=== PATIENT | male | born 1945 | race Caucasian/White ===

== ENCOUNTER → 2024-03-03 11:29 | Outpatient (REF) | payer MEDICARE, OTHER, SELFPAY | LOC: HWRAD 11:29 | PROVIDERS: ATTENDING PHYSICIAN Physician Assistant | DX: Z71.89 Other specified counseling (principal); E04.1 Nontoxic single thyroid nodule | CPT/HCPCS: 71250 ==

== ENCOUNTER → 2024-04-20 12:00 | Outpatient (REF) | payer MEDICARE, OTHER, SELFPAY | LOC: DHSLP 12:00 | PROVIDERS: ATTENDING PHYSICIAN Internal Medicine; FAMILY PHYSICIAN Family Medicine | DX: G47.33 Obstructive sleep apnea (adult) (pediatric) (principal) | CPT/HCPCS: 95800 ==

== ENCOUNTER → 2025-04-12 06:53 | Outpatient (REF) | payer OTHER, SELFPAY | LOC: RAD 06:53 | PROVIDERS: ATTENDING PHYSICIAN Specialist; FAMILY PHYSICIAN Physician Assistant | DX: R31.0 Gross hematuria (principal) | CPT/HCPCS: 74178; Q9967 ==

== ENCOUNTER 2025-04-25 06:12 | Day surgery (SDC) | payer OTHER, SELFPAY ==
[2025-04-20 09:12] LABS: Hematocrit 41.7 % (39.0-52.0); Hemoglobin 14.1 g/dL (13.0-18.0); Mean Corp Hgb Conc. 33.8 g/dL (33.0-37.0); Mean Corpuscular Volume 85.3 fL (80.0-94.0); Platelet Count 137 10^3/uL (130-400); Red Cell Dist. Width 12.7 % (11.5-14.5)
[2025-04-20 09:56] LABS: Blood Urea Nitrogen 22 mg/dl (9-20); Calcium 9.0 mg/dl (8.4-10.2); Carbon Dioxide 25 mmol/L (22-30); Chloride 104 mmol/L (98-107); Glucose 131 mg/dl (70-99); Potassium 4.4 mmol/L (3.5-5.1); Sodium 138 mmol/L (135-145); eGFR 55.88
[2025-04-20 13:54] VITALS: BMI 41.1
[2025-04-25] VITALS (14 sets, daily range): BP systolic 117–165; BP diastolic 73–97; BMI 41.1
[2025-04-25] MEDS: CYSVIEW KIT 100 MG INTRAVES (08:25)
[2025-04-25] MEDS: NORMOSOL-R/PLASMALYTE-A 1000 IV (08:34)
[2025-04-25] MEDS: SYRINGE NON-PUMP 50 MG IRRIG ×2 (11:16→11:17)
[2025-04-25] MEDS: SYRINGE NON-PUMP 50 ML IRRIG ×2 (11:16→11:17)
[2025-04-25] MEDS: DILAUDID 0.25 MG IV ×2 (11:18→11:28)
--- NOTE | 2025-04-25 12:50 | PTCARENOTE ---
1235 Post mckenna removal patient had minimal bleeding from urethra which clotted. Urethral clot removed and Dr Hammer notified. VSS and patient without C/O. Patient transferred to [facility], RN updated and will F/U with Dr Hammer.
[2025-04-25] MEDS: TYLENOL 650 MG PO (13:45)
--- NOTE | 2025-04-26 01:44 | W.IMMPOSTOP ---
Surgical Immed Post Op Note
-
Primary Surgeon: Ben
Assisting Surgeon: Harman
Pre-op Diagnosis: Bladder Cancer; Post-op Hematuria with Clot Urinary Retention
Post-op Diagnosis: same
Procedure Performed: cysto, clot evacuation, fulguration of bleeding
Anesthesia Type: gen
Specimen / Cultures: none
Estimated Blood Loss: 250 cc of clot; 50 ml of active bleeding
Complications: none
Operative Findings: clotted blood and friable resection sites within urinary bladder; bladder intact
OR findings, pt status and anticipated post-op plan d/w in family waiting
Tubes: 24 Fr 3-way Bella with CBI
== END 2025-04-25 14:48 | disposition home or self-care (01) ==
LOC: SDS 06:12
PROVIDERS: ATTENDING PHYSICIAN Specialist; FAMILY PHYSICIAN Physician Assistant
DX: C67.9 Malignant neoplasm of bladder, unspecified (principal)
CPT/HCPCS: 36415; 80048; 85027; 88307; 93005; A9589; J9201

== ENCOUNTER 2025-04-25 23:36 | Inpatient (IN) | payer OTHER, SELFPAY ==
[2025-04-25 21:22] VITALS: BP 92/66
--- NOTE | 2025-04-25 21:55 | ED.GENMED ---
History of Present Illness
<Noemi Perdomo, SEISMOMETER OPERATOR - Last Filed: 04/26/25 00:08>
General
Chief Complaint: Urinary Symptoms
Source: patient
Exam Limitations: none
Time Seen by Provider: 04/25/25 21:30
Nursing documentation reviewed up to this point in time: agreed with
History of Present Illness
History of Present Illness:
79-year-old male with history of HTN, HLD, CHF, GERD, sleep apnea with CPAP presents after bladder surgery earlier today by Dr. 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 The surgical procedure included a chemical
wash of the bladder. A catheter was placed during surgery but was removed before discharge. However, the patient was unable to urinate due to blood clots, and a larger catheter was subsequently inserted. The patient reports difficulty with urine
flow despite successfully emptying the bag once after arriving home. He was experiencing significant discomfort, stating, 'The only relief I get is when I stand up.' The patient returned to the Emergency Department due to persistent clots
obstructing the catheter.
Past History
<Noemi Perdomo, SEISMOMETER OPERATOR - Last Filed: 04/26/25 00:08>
Past History
ED Past Medical History: GERD, HTN, Hypercholesterolemia and Other (Sleep apnea, PNA, Gi bleeding)
ED Past Surgical History: None, Orthopedic (Knee replacement) and Other (Hernia)
Social History
Tobacco: Former smoker
Alcohol: Occasional
Personal:
Living: with family
Phy Exam
<Noemi Perdomo, SEISMOMETER OPERATOR - Last Filed: 04/26/25 00:08>
Physical Exam
Physical Exam:
GENERAL: No acute distress. A&Ox3.
CONSTITUTIONAL: Afebrile.
EYES: clear, conjunctivae normal
ENMT: moist mucus membranes, Pharynx nl
RESPIRATORY: Regular respirations, nonlabored, lungs clear.
CARDIOVASCULAR: Regular rate and rhythm, no murmurs, no rubs.
GI: Soft, nontender, normal BS
: Bella catheter intact, draining jordin red blood with clots
MUSCULOSKELETAL: Moves with ease. Well perfused.
SKIN: Warm, dry, pink
PSYCH: Normal mood and affect. Well kept, interactive and appropriate
NEUROLOGIC: Awake, alert and oriented. No focal neurological deficits
Course
<Noemi Perdomo NP - Last Filed: 04/26/25 00:08>
Orders/Labs/Results
Orders:
Orders
04/25/25 22:02
0.9% Sodium Chloride 1000 ml [Nss] 1,000 ml IV BOLUS
04/25/25 22:12
UROLOGY CONSULT Urgent
Consulting Provider: Jordin Contreras Jr.
Was physician already notified: Yes
Comment: bloody drainage Bella catheter
04/25/25 22:16
Type+Screen Urgent
Complete Blood Count/With Diff Urgent
Comprehensive Metabolic Panel Urgent
04/25/25 22:32
CBI- Treatment PRN
Solution: ns
Irrigate to Clear?: Yes
04/25/25 22:48
diazePAM [Valium Injection] 5 mg IV NOW STA
04/25/25 22:50
diazePAM [Valium Injection] 10 mg .ROUTE .STK-MED ONE
04/25/25 23:05
HYDROmorphone [Dilaudid] 0.5 mg IV NOW STA
04/25/25 23:33
Admit/Transfer Patient As Directed
Co-Sign Provider:
Level of Care: Inpatient admission
Assign to:: IMU- Intermediate Care
Physician / Group: Jennifer Rolon
Diagnosis: hematuria
Reason for Hospitalization: hematuria
Expected length of stay greater than two midnights?: Yes
ELOS- Estimated Length of Stay in days: 3
I certify the patient meets the requirements for IP care: Yes
PRN Pain Medication Management As Directed
May give lesser potent ordered pain med per pt: Yes
preference::
Protocol:: Medication orders for pain may be administered in a
manner that supports deferring to patient preference
when the pt is:
- Requesting an ordered lesser potent pain medication.
Least to most potent pain medications are defined
as: acetaminophen < NSAID < tramadol < opioids
(morphine, oxycodone, hydromorphone).
- Requesting a lesser dose of the same medication IF
ORDERED.
- Requesting a less intrusive route of administration
if both routes are prescribed by the provider (PO <
IV).
04/25/25 23:35
Code Status As Directed
Resuscitation Status: Full Code
04/25/25 23:42
Dexamethasone Sod Phosphate [Decadron] 20 mg .ROUTE .STK-MED ONE
Lidocaine HCl/Pf [Xylocaine-Mpf 1% Vial] 50 mg .ROUTE .STK-MED ONE
Ondansetron Injectable [Zofran] 4 mg .ROUTE .STK-MED ONE
Propofol [Diprivan] 20 ml .ROUTE .STK-MED
Rocuronium [place] [Rocuronium] 50 mg .ROUTE .STK-MED ONE
04/25/25 23:43
Fentanyl Citrate/Pf [Sublimaze] 100 mcg .ROUTE .STK-MED ONE
04/25/25 23:50
Carboxymethylcellulose [Refresh Celluvisc Gel] 6 drops .ROUTE .STK-MED ONE
Abnormal Lab Results
04/25/25
22:16
WBC 11.2 H 10^3/uL
(4.8-10.8)
RBC 4.68 L 10^6/uL
(4.70-6.10)
MPV 11.9 H fL
(7.4-10.4)
Abs Immat Gran (auto) 0.1 H 10^3/uL
(0-0.05)
Absolute Neuts (auto) 10.5 H 10^3/uL
(1.4-6.5)
Absolute Lymphs (auto) 0.3 L 10^3/uL
(1.2-3.4)
Immature Gran % 0.6 H %
(0-0.5)
Neutrophils % 94.1 H %
(42.2-75.2)
Lymphocytes % 2.3 L %
(20.5-51.1)
Carbon Dioxide 21 L mmol/L
(22-30)
Glucose 235 H mg/dl
(70-99)
04/25/25 22:16
04/25/25 22:16
Vital Signs
Initial and Last Documented VS:
Initial Vital Signs
Temp Pulse Resp BP Pulse Ox
98.2 F 112 20 92/66 95
04/25/25 21:22 04/25/25 21:22 04/25/25 21:22 04/25/25 21:22 04/25/25 21:22
Last Documented Vital Signs
Temp Pulse Resp BP Pulse Ox
98.2 F 108 16 159/107 95
04/25/25 21:22 04/25/25 22:00 04/25/25 22:00 04/25/25 23:35 04/25/25 23:45
<Marlon Barrow, DO - Last Filed: 04/25/25 22:19>
Orders/Labs/Results
Orders:
Orders
04/25/25 22:02
0.9% Sodium Chloride 1000 ml [Nss] 1,000 ml IV BOLUS
04/25/25 22:12
UROLOGY CONSULT Urgent
Consulting Provider: Jordin Contreras Jr.
Was physician already notified: Yes
Comment: bloody drainage Bella catheter
04/25/25 22:16
Type+Screen Urgent
Complete Blood Count/With Diff Urgent
Comprehensive Metabolic Panel Urgent
04/25/25 22:32
CBI- Treatment PRN
Solution: ns
Irrigate to Clear?: Yes
04/25/25 22:48
diazePAM [Valium Injection] 5 mg IV NOW STA
04/25/25 22:50
diazePAM [Valium Injection] 10 mg .ROUTE .STK-MED ONE
04/25/25 23:05
HYDROmorphone [Dilaudid] 0.5 mg IV NOW STA
04/25/25 23:33
Admit/Transfer Patient As Directed
Co-Sign Provider:
Level of Care: Inpatient admission
Assign to:: IMU- Intermediate Care
Physician / Group: Jennifer Rolon
Diagnosis: hematuria
Reason for Hospitalization: hematuria
Expected length of stay greater than two midnights?: Yes
ELOS- Estimated Length of Stay in days: 3
I certify the patient meets the requirements for IP care: Yes
PRN Pain Medication Management As Directed
May give lesser potent ordered pain med per pt: Yes
preference::
Protocol:: Medication orders for pain may be administered in a
manner that supports deferring to patient preference
when the pt is:
- Requesting an ordered lesser potent pain medication.
Least to most potent pain medications are defined
as: acetaminophen < NSAID < tramadol < opioids
(morphine, oxycodone, hydromorphone).
- Requesting a lesser dose of the same medication IF
ORDERED.
- Requesting a less intrusive route of administration
if both routes are prescribed by the provider (PO <
IV).
04/25/25 23:35
Code Status As Directed
Resuscitation Status: Full Code
04/25/25 23:42
Dexamethasone Sod Phosphate [Decadron] 20 mg .ROUTE .STK-MED ONE
Lidocaine HCl/Pf [Xylocaine-Mpf 1% Vial] 50 mg .ROUTE .STK-MED ONE
Ondansetron Injectable [Zofran] 4 mg .ROUTE .STK-MED ONE
Propofol [Diprivan] 20 ml .ROUTE .STK-MED
Rocuronium [place] [Rocuronium] 50 mg .ROUTE .STK-MED ONE
04/25/25 23:43
Fentanyl Citrate/Pf [Sublimaze] 100 mcg .ROUTE .STK-MED ONE
04/25/25 23:50
Carboxymethylcellulose [Refresh Celluvisc Gel] 6 drops .ROUTE .STK-MED ONE
Abnormal Lab Results
04/25/25
22:16
WBC 11.2 H 10^3/uL
(4.8-10.8)
RBC 4.68 L 10^6/uL
(4.70-6.10)
MPV 11.9 H fL
(7.4-10.4)
Abs Immat Gran (auto) 0.1 H 10^3/uL
(0-0.05)
Absolute Neuts (auto) 10.5 H 10^3/uL
(1.4-6.5)
Absolute Lymphs (auto) 0.3 L 10^3/uL
(1.2-3.4)
Immature Gran % 0.6 H %
(0-0.5)
Neutrophils % 94.1 H %
(42.2-75.2)
Lymphocytes % 2.3 L %
(20.5-51.1)
Carbon Dioxide 21 L mmol/L
(22-30)
Glucose 235 H mg/dl
(70-99)
04/25/25 22:16
04/25/25 22:16
Vital Signs
Initial and Last Documented VS:
Initial Vital Signs
Temp Pulse Resp BP Pulse Ox
98.2 F 112 20 92/66 95
04/25/25 21:22 04/25/25 21:22 04/25/25 21:22 04/25/25 21:22 04/25/25 21:22
Last Documented Vital Signs
Temp Pulse Resp BP Pulse Ox
98.2 F 108 16 159/107 95
04/25/25 21:22 04/25/25 22:00 04/25/25 22:00 04/25/25 23:35 04/25/25 23:45
<Noemi Perdomo, SEISMOMETER OPERATOR - Last Filed: 04/26/25 00:08>
MDM/Problems Addressed
MDM/Problems Addressed:
79-year-old male with history of HTN, HLD, CHF, GERD, sleep apnea with CPAP presents after bladder surgery earlier today by Dr. 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 The surgical procedure included a chemical
wash of the bladder. A catheter was placed during surgery but was removed before discharge. However, the patient was unable to urinate due to blood clots, and a larger catheter was subsequently inserted. The patient reports difficulty with urine
flow despite successfully emptying the bag once after arriving home. He was experiencing significant discomfort, stating, 'The only relief I get is when I stand up.' The patient returned to the Emergency Department due to persistent clots
obstructing the catheter.
PROCEDURES PERFORMED:
1. Transurethral resection of bladder tumors.
2. Intravesical chemotherapy installation (gemcitabine).
3. Cystoscopy: White and blue lights.
Jordin blood in Bella bag and urine retention. Irrigated numerous times with clots and jordin blood, CBI started.
10:00 PM:
BP soft 92/66, heart rate 112, continues with jordin red blood drainage with CBI
Consulted urology Dr. Contreras
Case discussed with Dr. Barrow who evaluated patient
10:20 p.m.
CBC: No clinically significant abnormality
CMP: Glucose 235 otherwise normal (stress reaction vs. diabetes, Hgb A1C ordered)
BP improved, CBI starting to drain more clear, cranberry colored fluid
Hospitalist notified of admission.
Dr. Contreras in
<Noemi Perdomo SEISMOMETER OPERATOR - Last Filed: 04/26/25 00:08>
*Pulse Oximetry
SaO2: 95
Oxygen Mode of Delivery: Room air
Patient hypoxic: not evaluated
*Critical Care Note
Total Time (30-74mins, 75-104mins- exclusive of procedures): Not Applicable
ED Attending Note
<Noemi Perdomo SEISMOMETER OPERATOR - Last Filed: 04/26/25 00:08>
-
Portions of this chart may have been created with voice recognition software.� Occasional wrong word or��sound alike� substitutions may have occurred due to the inherent limitations of voice recognition software.
<Marlon Barrow DO - Last Filed: 04/25/25 22:19>
ED Attending Note
Patient seen and examined by attending physician: Yes
ED Attending Note:
I reviewed and agree with history and treatment plan by LUIS FELIPE Bailey. My exam revealed 79-year-old female in no acute distress mild tachycardia but normotensive. Initial gross hematuria clearing a little bit with CBI. Urology made aware. Will
admit for further monitoring. Type and screen performed.
Discharge Plan
Departure
Patient Disposition: Admit
Date of Disposition: 04/25/25
Time of Disposition: 22:19
Admit to: Med/Surg
Presentation/result/management discussed w/ accepting MD/DO: Hospitalist
Condition: Fair
Discharge Problem:
Jordin hematuria
Prescriptions:
No Action
cyanocobalamin (vitamin B-12) 1,000 MCG tablet
1,000 mcg PO DAILY
cholecalciferol (vitamin D3) 1,000 UNITS tablet
2,000 units PO DAILY
furosemide 40 MG tablet
40 mg PO BID AT 0800,1600 Qty: 60 2RF
diltiazem HCl 180 MG capsule,extended release 24hr
180 mg PO DAILY Qty: 30 0RF
melatonin 5 mg Tablet
10 mg PO HS PRN (Reason: sleep)
pravastatin 40 MG tablet
40 mg PO QPM
acetaminophen [Tylenol Extra Strength] 500 MG tablet
1,000 mg PO QID PRN (Reason: pain)
multivitamin Tablet
1 tab PO DAILY
losartan 50 mg Tablet
50 mg PO DAILY
Uro-MP 118-10-40.8-36 mg capsule
1 tab PO QID Qty: 40 5RF
tramadol 50 mg tablet
50 mg PO TID PRN (Reason: severe pain) Qty: 15 0RF
Referrals:
NONE,* [Family Provider, Internal Medicine]
Interventions
Interventions:
*Risk Screen - Suicide Last Done: 04/25/25 21:22
*General Assessment Last Done: 04/25/25 21:55
*Neglect/Abuse Screening Last Done: 04/25/25 21:22
*ED- Fall Risk Assessment Last Done: 04/25/25 21:55
*ED COVID-19 Vaccine History Last Done: 04/25/25 21:55
ED-Male Genitourinary Assessment Last Done: 04/25/25 23:25
Discharge Date and Time
Print Language: [place]CI[place]
[2025-04-25 22:00] VITALS: BP 153/97
[2025-04-25] MEDS: NSS 1000 IV (22:17)
--- NOTE | 2025-04-25 22:30 | HPS.HSE ---
Family Physician
-
Family Physician: * NONE
Chief Complaint
-
decreased urine flow in Mckenna and discomfort
History of Present Illness
Patient is a 79-year-old male with past medical history significant for HFpEF, hypertension and SVT who presented to [facility] ED for evaluation of decreased urine flow in Mckenna and discomfort. Patient is s/p TURBT and intravesical chemotherapy
installation (gemcitabine) with Dr. Hammer earlier today. He reported that postop he had clots and difficulty urinating so a Mckenna was placed and since he got home the urine flow has slowed, blood present with clots and abdominal discomfort. He
presented to ED for discomfort and clots obstructing the catheter. New mckenna placed in ED and clotted off, Urology unable to irrigate, taking patient to OR for clot evacuation and fulguration.
Medical History
Past Medical History
Past Medical History: Reports Other
Additional Past Medical History:
HFpEF
hypertension
anemia
MARI
SVT
Past Surgical History: Reports Other
Additional Past Surgical History:
Left knee replacement 2012
Right TKR (DOS 02.25.2023)
Hernia 1997
Teeth implants 06/2024
TURBT 04/25/2025
Social History
Tobacco: Former Smoker
Alcohol: Occasional (multiple times a week )
Drug: None
Personal:
Living: With Family
Family History
Family History: Not pertinent
Allergies / Home Medications
Allergies reflects when Allergies were last updated in [employer].
Home Medications with original date entered in [employer]
Allergy/Medication List:
Allergies
Allergy/AdvReac Type Severity Reaction Status Date / Time
lisinopril Allergy 'coughing' Verified 04/25/25 23:06
Home Medications
cholecalciferol (vitamin D3) 25 mcg (1,000 unit) tablet 2,000 units PO DAILY Supplement 10/30/19
cyanocobalamin (vitamin B-12) 1,000 mcg tablet 1,000 mcg PO DAILY Supplement 10/30/19
furosemide 40 mg tablet 40 mg PO BID AT 0800,1600 #60 tabs 11/11/19
diltiazem HCl 180 mg capsule,extended release 24 hr 180 mg PO DAILY ##30 11/21/19
melatonin 5 mg tablet 10 mg PO HS PRN sleep 02/04/23
acetaminophen 500 mg tablet (Tylenol Extra Strength) 1,000 mg PO QID PRN pain 04/18/25
losartan 50 mg tablet 50 mg PO DAILY 04/18/25
multivitamin 1 tab PO DAILY 04/18/25
pravastatin 40 mg tablet 40 mg PO QPM 04/18/25
methenam 118 mg-m.blue 10 mg-s.phos 40.8 mg-p.salic 36 mg-hyos capsule (Uro-MP) 1 tab PO QID bladder irritation #40 caps 04/25/25
tramadol 50 mg tablet 50 mg PO TID PRN severe pain #15 tabs 04/25/25
Review of Systems
-
History Source: Patient
Constitutional: Reports No Symptoms
EENT: Reports No Symptoms
Respiratory: Reports No Symptoms
Cardiac: Reports No Symptoms
Abdomen/GI: Reports Abdominal Pain
: Reports Difficulty Voiding and Mckenna (clotted off x2 unable to irrigate )
Musculoskeletal: Reports No Symptoms
Skin: Reports No Symptoms
Neurological: Reports No Symptoms
Endocrine: Reports No Symptoms
Hematologic/Lymphatic: Reports No Symptoms
Psych: Reports No Symptoms
Physical Exam
Vital Signs
Vital Signs
Temp Pulse Resp BP Pulse Ox
98.2 F 108 16 153/97 98
04/25/25 21:22 04/25/25 22:00 04/25/25 22:00 04/25/25 22:00 04/25/25 22:00
Physical Exam
General: Well Developed, Well Nourished, No Apparent Distress, Appears in Distress, Pain and Morbidly Obese
HEENT: NormoCephalic, Moist mucous membranes and Atraumatic
Respiratory: Clear and Non Labored Respirations
Cardiac: S1/S2 and Regular Rhythm; No Murmur, Rub or Gallop
GI: Soft, Non Tender, Non Distended and Normal Bowel Sounds; No Organomegaly
Rectal: Deferred by Provider
Genito-urinary: Bloody Urine and Continuous Bladder Irrigation (clotted off and unable to irrigate )
Musculoskeletal: No Clubbing, No Cyanosis and No Edema
Skin: No Rash
Neuro: Awake, AO x 3 and Nonfocal/grossly intact
Hematologic/Lymphatic: No Lymphadenopathy
Psych: Intact Judgment/Insight
Data Reviewed
-
Lab Data: Labs Reviewed by me
Impression/Plan
-
IMPRESSION/PLAN:
#hematuria
s/p TURBT-gemcyto with Dr. Hammer earlier today
s/p Mckenna exchange in ED, attempted irrigation of clots, unsuccessful, patient with significant discomfort
- Admit to IMU
- Consult Urology
- NPO, patient going to OR
- trend H/H
- blood consent obtained and scanned to chart
#HFpEF
- daily weights
- I &Os
- continue furosemide
#hypertension
- continue losartan
#hyperlipidemia
- continue pravastatin
#MARI
- CPAP at HS
#SVT
- continue diltiazem
Code status: full code
DVT prophylaxis: SCDs
--- NOTE | 2025-04-25 22:33 | W.PN.UPDATE ---
Update Note
Progress Note Update
This is an addendum to H&P written by NET WPF DEVELOPER Neda Quevedo
I saw and examined the patient.
The NET WPF DEVELOPER's note was reviewed and I agree with the note.
Comment:
Mr. Brian Paz is a 79 yo man with hx HTN, HLD, HF, GERD, MARI, bladder mass status post transurethral resection bladder tumor, intravesical chemotherapy presents to the ER with suprapubic discomfort and difficulty with urine flow in catheter
secondary to blood clots.
Triage VS: T 98.2, P 112, RR 20, BP 92/66, Spo2 95%
On exam patient is in apparent distress, discomfort, abdomen soft, suprapubic tenderness, + mckenna with hematuria
LABS: WBC 11.2, Hg 13.7, PLT 138, Na 136,j K+ 4.7, Cl 105, CO2 21, Cr 1.3, Glucose 235, T. Bili 0.6, AST 20, ALT 23, Alk PHos 70
Hematuria
status post Transurethral resection of bladder tumor
-s/p mckenna exchange, attempt at irrigation in ER but given difficulty and patient discomfort plan is for OR today
-seen by Dr. Contreras in the ER
-admit to IMU post-op
-trend Hg
-blood consent
Essential HTN
GERD
HFpEF
*awaiting med rec
Remainder of plan per NET WPF DEVELOPER note
76 minutes spent on patient care
--- NOTE | 2025-04-25 22:35 | EDRN ---
Dr. Contreras at bedside, Ben emptied CBI bag without measuring, unable to accurately measure I/O's.
[2025-04-25 22:42] LABS: ALT (SGPT) 23 U/L (0-50); AST (SGOT) 20 U/L (17-59); Albumin 4.3 g/dl (3.5-5.0); Alkaline Phosphatase 70 U/L (38-126); Blood Urea Nitrogen 20 mg/dl (9-20); Calcium 9.1 mg/dl (8.4-10.2); Carbon Dioxide 21 mmol/L (22-30); Chloride 105 mmol/L (98-107); Glucose 235 mg/dl (70-99); Potassium 4.7 mmol/L (3.5-5.1); Sodium 136 mmol/L (135-145); Total Protein 6.7 g/dl (6.3-8.2); eGFR 55.88
[2025-04-25 22:52] LABS: Hematocrit 39.6 % (39.0-52.0); Hemoglobin 13.7 g/dL (13.0-18.0); Mean Corp Hgb Conc. 34.6 g/dL (33.0-37.0); Mean Corpuscular Volume 84.6 fL (80.0-94.0); Nucleated Red Blood Cells % 0 % (-); Platelet Count 138 10^3/uL (130-400); Red Cell Dist. Width 12.7 % (11.5-14.5)
[2025-04-25] MEDS: VALIUM INJECTION 5 MG IV (22:53)
[2025-04-25 23:00] VITALS: BP 194/109
[2025-04-25 23:02] VITALS: BP 159/89
--- NOTE | 2025-04-25 23:14 | W.PN.UPDATE ---
Update Note
Progress Note Update
pt s/p TURBT-gemcyto
sent home with mckenna
developed clot retention
mckenna placed in ER and CBI started- but clotted off
replaced mckenna- but can not irrigate and pt in sig discomfort
labs stable
lower abd benign
plan to OR for cysto and clot evac and fulguration
[2025-04-25] MEDS: DILAUDID 0.5 MG IV (23:18)
[2025-04-25 23:26] VITALS: BMI 43.7
[2025-04-25 23:35] VITALS: BP 159/107
[2025-04-26] VITALS (17 sets, daily range): BP systolic 123–159; BP diastolic 67–107; PULSE 72–78; BMI 43.7; BMI 44.8; BMI 44.7
--- NOTE | 2025-04-26 03:17 | PTCARENOTE ---
Received patient from PACU this am. Patient aao x3, friendly affect, able to make needs known, denies pain. NSR on the monitor with occasional PVCs. Lungs diminished throughout, on 3L o2 n/c pox 95%. RT at bedside currently applying CPAP per patient
request. BS hypoactive x4, abdomen round, obese. Patient denies discomfort, constipation. CBI currently running at rate set in OR. [address] way mckenna catheter to traction per md order until 0600. at bedside, call salomon within reach. Will continue to
monitor patient closely.
[2025-04-26 05:35] LABS: Hematocrit 36.7 % (39.0-52.0); Hemoglobin 12.5 g/dL (13.0-18.0); Mean Corp Hgb Conc. 34.1 g/dL (33.0-37.0); Mean Corpuscular Volume 85.3 fL (80.0-94.0); Platelet Count 118 10^3/uL (130-400); Red Cell Dist. Width 12.8 % (11.5-14.5)
[2025-04-26 06:00] LABS: Blood Urea Nitrogen 19 mg/dl (9-20); Calcium 8.0 mg/dl (8.4-10.2); Carbon Dioxide 23 mmol/L (22-30); Chloride 106 mmol/L (98-107); Estimated Creatinine Clearance 71 ml/min; Glucose 176 mg/dl (70-99); Potassium 4.8 mmol/L (3.5-5.1); Sodium 135 mmol/L (135-145); eGFR > 60.00
--- NOTE | 2025-04-26 06:23 | PTCARENOTE ---
CBI running, mckenna draining clear yellow urine. Patient continues to deny pain. Will continue to monitor closely.
--- NOTE | 2025-04-26 07:36 | W.PN.HOSP.TC ---
Today's Communication/Plan
-
see A/P
Assessment / Plan
Assessment / Plan
HPI: 79 yo man with PMH HTN, HLD, HF, GERD, MARI, bladder mass status post transurethral resection bladder tumor, intravesical chemotherapy; presented to the ER with suprapubic discomfort and difficulty with urine flow in catheter secondary to blood
clots.
A/P:
# Hematuria
# status post Transurethral resection of bladder tumor
s/p mckenna exchange, attempt at irrigation in ER but given difficulty and patient discomfort plan is for OR
s/p OR 04/25 for cystoscopy, clot evacuation, fulguration of bleeding by Uro
Admit to IMU post-op
trend Hg, blood consented
# Essential HTN
continue losartan with hold parameter
# GERD
# HFpEF
Cont [employer] ANALYST lasix with hold parameter
# hyperlipidemia
continue pravastatin
# MARI
CPAP at HS
# SVT
Continue diltiazem
Code status: full code
DVT prophylaxis: SCDs
DW RN
DW at bedside
Anticipated Discharge: 24 - 48 hours
Subjective/Interval History
-
Date of Service: April 26, 2025
Objective Data
-
Labs:
Laboratory Results
04/25/25 04/26/25 04/26/25
22:16 01:46 05:22
WBC 11.2 H 12.1 H
Hgb 13.7 Cancelled 12.5 L
Hct 39.6 Cancelled 36.7 L
Plt Count 138 118 L
Sodium 136 135
Potassium 4.7 4.8
Chloride 105 106
Carbon Dioxide 21 L 23
BUN 20 19
Creatinine 1.3 1.2
Glucose 235 H 176 H
Calcium 9.1 8.0 L
Total Bilirubin 0.6
AST 20
ALT 23
Alkaline Phosphatase 70
Vital Signs:
Vital Signs
Temp Pulse Resp BP Pulse Ox
36.9 C 69 14 134/67 97
04/26/25 03:50 04/26/25 06:15 04/26/25 06:15 04/26/25 06:00 04/26/25 06:15
I&O
04/25/25 04/26/25 04/27/25
06:59 06:59 06:59
Intake Total 240 / 240
Output Total 2800 / 2800
Balance -2560 / -2560
Review of Systems
-
History Source: Patient
All other systems: Reviewed and negative
Physical Exam
-
General: Well Developed, Well Nourished, No Apparent Distress, Comfortable and Conversant; Negative Respiratory Distress
HEENT: Normocephalic, Atraumatic, Nose Appears Normal, Ears Appear Normal and Oxygen (3L NC)
Respiratory: Clear to Auscultation and Non Labored Respirations; Negative Accessory Resp Muscle Use
Cardiac: Regular Rhythm and S1/S2
GI: Soft, Nontender, Nondistended and Normal Bowel Sounds
Genito-urinary: Continuous Bladder Irrigation
Skin: Warm and Dry
Neuro: Awake, Alert, Oriented and AO x 3
Psych: Calm and Intact Judgement/Insight
Data Reviewed
-
Labs: Labs Reviewed by me
[2025-04-26 08:10] LABS: Glycohemoglobin (HgbA1c) 6.3 % (4.0-5.6)
--- NOTE | 2025-04-26 08:55 | PTCARENOTE ---
Patient received from wood gluer. Patient resting comfortably in bed. AAO, VSS. No events noted over night. No complaints of pain. CBI running to keep clot free. No testing scheduled at this time. Call salomon in reach.
[2025-04-26] MEDS: LASIX 40 MG PO ×2 (09:21→17:20)
[2025-04-26] MEDS: CARDIZEM CD 180 MG PO (09:21)
[2025-04-26] MEDS: CYKLOKAPRON 650 MG PO (09:21)
[2025-04-26] MEDS: COLACE 100 MG PO ×3 (09:21→17:20)
[2025-04-26] MEDS: COZAAR 50 MG PO (09:22)
--- NOTE | 2025-04-26 09:25 | W.PN.URO.CBU ---
Today's Communication / Plan
-
stop CBI
ambulate
anticipate d/c tomorrow with Bella
Assessment / Plan
-
resolved hematuria
Diagnosis
-
Date of Service: April 26, 2025
-
Patient Diagnosis: Bladder Cancer
s/p TURBT + return to OR for clot evacuation and fulguration
Post Op Day:
Subjective
-
'better now'
Objective
-
Vital Signs
Temp Pulse Resp BP Pulse Ox
97.7 F 87 14 129/86 97
04/26/25 08:10 04/26/25 09:21 04/26/25 06:15 04/26/25 09:21 04/26/25 06:15
Intake and Output
04/25/25 04/26/25 04/27/25
06:59 06:59 06:59
Intake Total 240 / 240
Output Total 2800 / 2800
Balance -2560 / -2560
Intake:
Oral fluids 240 / 240
Output:
True Urine Output from CBI 2800 / 2800
Laboratory Results
04/26/25 05:22
04/26/25 05:22
Physical Exam
-
General - no acute distress
Abdomen - soft, non-tender, positive bowel sounds, no CVAT, no incisional pain or distention
Genitalia -Bella with almost clear outflow
--- NOTE | 2025-04-26 14:30 | CM ---
Patient sen at bedside in IMU. Patient states that he lives in a 1 story home with his . Patient states that he has 4 steps to enter. Patient PCP is Dr. Baires and uses the [facility] in [place]. Patient is planning to go home tomorrow and
is uncertain if he needs VN at home or not. Patient states that he wants to talk to his physician first. CM will continue to follow for discharge planning needs.
Plan; home with VN vs home with no needs.
[2025-04-26] MEDS: PRAVACHOL 40 MG PO (17:20)
[2025-04-26 21:23] LABS: Hepatitis C Antibody Negative (Negative)
--- NOTE | 2025-04-27 00:09 | PTCARENOTE ---
Caring for pt overnight. aaox3, pleasant, denies pain. [address], draining gabby urine, free of clots, not bloody. NSR on monitor, remains RA. OOB to chair minimal assistance. Will continue to monitor.
[2025-04-27 02:05] VITALS: BP 140/74
[2025-04-27 03:58] VITALS: PULSE 78
[2025-04-27 04:00] VITALS: BP 138/75
[2025-04-27 05:49] LABS: Hematocrit 31.0 % (39.0-52.0); Hemoglobin 10.5 g/dL (13.0-18.0); Mean Corp Hgb Conc. 33.9 g/dL (33.0-37.0); Mean Corpuscular Volume 86.8 fL (80.0-94.0); Nucleated Red Blood Cells % 0 % (-); Platelet Count 133 10^3/uL (130-400); Red Cell Dist. Width 12.8 % (11.5-14.5)
[2025-04-27 05:54] VITALS: BMI 44.1
[2025-04-27 06:00] VITALS: BP 134/64
[2025-04-27 06:16] LABS: Blood Urea Nitrogen 25 mg/dl (9-20); Calcium 8.4 mg/dl (8.4-10.2); Carbon Dioxide 25 mmol/L (22-30); Chloride 109 mmol/L (98-107); Estimated Creatinine Clearance 70 ml/min; Glucose 133 mg/dl (70-99); Magnesium 2.6 mg/dl (1.6-2.3); Potassium 4.4 mmol/L (3.5-5.1); Sodium 137 mmol/L (135-145); eGFR > 60.00
--- NOTE | 2025-04-27 07:33 | W.PN.HOSP.TC ---
Addendum entered and electronically signed by Krys Farias MD 04/27/25 16:57:
# Acute blood loss anemia
Original Note:
Today's Communication/Plan
-
see A/P
Assessment / Plan
Assessment / Plan
HPI: 79 yo man with PMH HTN, HLD, HF, GERD, MARI, bladder mass status post transurethral resection bladder tumor, intravesical chemotherapy; presented to the ER with suprapubic discomfort and difficulty with urine flow in catheter secondary to blood
clots.
A/P:
# Hematuria
# status post Transurethral resection of bladder tumor
s/p OR 04/25 for cystoscopy, clot evacuation, fulguration of bleeding by Uro
was started with CBI, now off
Cont to trend Hg, Check Hgb in 1 week result to PCP
Uro on board, d/w Uro, plan to remove Bella today, check bladder scan for 2-3 hours, then hopefully discharge
# Essential HTN
continue losartan with hold parameter
# GERD
# HFpEF
Cont [employer] lasix with hold parameter
# hyperlipidemia
continue pravastatin
# MARI
CPAP at HS
# SVT
Continue diltiazem
Code status: full code
DVT prophylaxis: SCDs
DW Uro
Anticipated Discharge: Today
Subjective/Interval History
-
Date of Service: April 27, 2025
Objective Data
-
Labs:
Laboratory Results
04/27/25
05:12
WBC 12.9 H
Hgb 10.5 L
Hct 31.0 L
Plt Count 133
Sodium 137
Potassium 4.4
Chloride 109 H
Carbon Dioxide 25
BUN 25 H
Creatinine 1.2
Glucose 133 H
Calcium 8.4
Vital Signs:
Vital Signs
Temp Pulse Resp BP Pulse Ox
36.4 C 65 15 134/64 97
04/27/25 02:37 04/27/25 06:00 04/27/25 06:00 04/27/25 06:00 04/27/25 06:00
I&O
04/26/25 04/27/25 04/28/25
06:59 06:59 06:59
Intake Total 240 / 240 700 / 700
Output Total 2800 / 2800 3000 / 3000
Balance -2560 / -2560 -2300 / -2300
Review of Systems
-
History Source: Patient
All other systems: Reviewed and negative
Physical Exam
-
General: Well Developed, Well Nourished, No Apparent Distress, Comfortable, Conversant and Morbidly Obese; Negative Respiratory Distress
HEENT: Normocephalic, Atraumatic, Nose Appears Normal and Ears Appear Normal
Respiratory: Clear to Auscultation and Non Labored Respirations; Negative Accessory Resp Muscle Use
Cardiac: Regular Rhythm and S1/S2
GI: Soft, Nontender, Nondistended and Normal Bowel Sounds
Genito-urinary: Negative Continuous Bladder Irrigation
Skin: Warm and Dry
Neuro: Awake, Alert, Oriented and AO x 3
Psych: Calm and Intact Judgement/Insight
Data Reviewed
-
Labs: Labs Reviewed by me
--- NOTE | 2025-04-27 07:34 | W.PN.URO.CBU ---
Today's Communication / Plan
-
Bella removal
will likely be fit for d/c urologically by noon
Assessment / Plan
-
resolved hematuria
Diagnosis
-
Date of Service: April 27, 2025
-
Patient Diagnosis: Bladder Cancer
s/p TURBT + return to OR for clot evacuation and fulguration
Post Op Day: 2
Subjective
-
'I feel good.'
Objective
-
Vital Signs
Temp Pulse Resp BP Pulse Ox
97.6 F 65 15 134/64 97
04/27/25 02:37 04/27/25 06:00 04/27/25 06:00 04/27/25 06:00 04/27/25 06:00
Intake and Output
04/26/25 04/27/25 04/28/25
06:59 06:59 06:59
Intake Total 240 / 240 700 / 700
Output Total 2800 / 2800 3000 / 3000
Balance -2560 / -2560 -2300 / -2300
Intake:
Oral fluids 240 / 240 700 / 700
Output:
Urine, Bella 1900 / 1900
True Urine Output from CBI 2800 / 2800 1100 / 1100
Laboratory Results
04/27/25 05:12
04/27/25 05:12
Physical Exam
-
General - well developed, well nourished, no acute distress
Abdomen - soft, non-tender, positive bowel sounds, no distention
Genitalia - Bella w/o CBI draining pale yellow
[2025-04-27] MEDS: COLACE 100 MG PO (07:59)
[2025-04-27 08:00] VITALS: BP 147/83
[2025-04-27] MEDS: LASIX 40 MG PO (08:00)
[2025-04-27] MEDS: CARDIZEM CD 180 MG PO (08:00)
[2025-04-27] MEDS: COZAAR 50 MG PO (08:00)
--- NOTE | 2025-04-27 08:30 | PTCARENOTE ---
Patient received from night assistant. Patient resting comfortably in bed asking to get into the chair for breakfast. AAO, VSS. No events noted over night. No complaints of pain. CBI remained off, mckenna to be removed this AM. Possible discharge
today. Call salomon in reach.
--- NOTE | 2025-04-27 14:35 | PN.CDI ---
CDI
- -
CDI:
Physician Documentation Request
Admit Date: 04/25/25 23:36
Dear Doctor ,
Please review the following and provide your response in the progress notes.
Clinical Indicators:
Pt admitted with hematuria
Documented per H&P, ' #hematurias/p TURBT-gemcyto with Dr. Hammer earlier todays/p Bella exchange in ED, attempted irrigation of clots, unsuccessful, patient with significant discomfort...'
Documented per operative report, ' I was eventually able to get the bladder free of clot. There were then multiple bleeding points along the previous resection within the prostatic fossa, which were fulgurated.'
Please provide the suspected etiology of the documented hematuria :
Multifactorial due to bladder cancer / recent TURBT on 04/25
Due to TURBT on 04/25
Due to Bladder cancer
Other ( please specify)
Use of terms such as suspected, likely, concern for, or probable (associated with a specific diagnosis that is being evaluated, monitored, or treated as if it exists) are acceptable and can be coded in the inpatient setting, when documented at the
time of discharge.
Thank you,
Rekha Real RN
CDI Specialist
[facility]
Please use your independent medical judgment in providing your response.
--- NOTE | 2025-04-27 14:44 | PN.CDI ---
CDI
- -
CDI:
Physician Documentation Request
Admit Date: 04/25/25 23:36
Dear Doctor Jarrett,
Please review the following and provide your response in the progress notes.
Clinical Indicators:
Pt admitted with hematuria
Documented per operative report, ' 250 mL of old clot. 50 mL of active bleeding.'
Documented per 04/27 note, ' Hematuria..Cont to trend Hg, Check Hgb in 1 week result to PCP ...'
04/25/25 04/26/25 04/27/25
22:16 05:22 05:12
Hgb 13.7 12.5 L 10.5 L
Hct 39.6 36.7 L 31.0 L
Please provide a diagnosis for the above laboratory findings:
Acute blood loss anemia
Abnormal lab value
Other ( please specify)
Use of terms such as suspected, likely, concern for, or probable (associated with a specific diagnosis that is being evaluated, monitored, or treated as if it exists) are acceptable and can be coded in the inpatient setting, when documented at the
time of discharge.
Thank you,
Rekha Rael RN
CDI Specialist
[facility]
Please use your independent medical judgment in providing your response.
--- NOTE | 2025-04-27 14:47 | PTCARENOTE ---
Patient discharged home. Patient left with all known belongings. Patients at bedside. Discharge instructions reviewed and all questions answered.
--- NOTE | 2025-04-27 15:04 | W.PN.UPDATE ---
Update Note
Progress Note Update
please note in response to inquiry
bleeding from resected bladder cancer and prostate from from recent TURBT
--- NOTE | 2025-04-27 16:30 | W.DCSUMMARY ---
Discharge Summary
Discharge Data
Date of Admission: 04/25/25
Date of Discharge: 04/27/25
Total time spent discharging patient (in min): 40
-
Pending Results: No
Hospital Course
Principal Diagnosis:
Gross hematuria, resolved.
Chronic Diagnoses:�
Bladder mass status post transurethral resection bladder tumor, intravesical chemotherapy
Essential hypertension
GERD
HFpEF
Hyperlipidemia, continue pravastatin
MARI, on CPAP HS
SVT, on diltiazem
Consultations:�
Urology
Procedures:�
s/p OR on admission 04/25/2025 for cystoscopy, clot evacuation, fulguration of bleeding by urology
Clinical course:�
This is a 79-year-old male with past medical history as stated above, who presented with suprapubic discomfort, dysuria, and hematuria with blood clots.
Problem 1:
Gross hematuria, resolved.
This is likely related to his underlying bladder tumor status post resection.
He underwent OR on admission on 04/25/2025, and had cystoscopy, clot evacuation, and fulguration of bleeding by Uro.
This was followed by CBI which was subsequently discontinued.
His hematuria resolved and Bella discontinued.
His hemoglobin was at 10 on the day of discharge (previously at 13.7).
He can check repeat hemoglobin in 1 week, result to his PCP.
As for the rest of his medical problems, they were stable during his hospital stay.
Discharge Plan
-
Patient Disposition: Home (Routine Discharge)
Discharge Diagnosis/Procedures: Hematuria (resolved), status post OR 04/25 for cystoscopy, clot evacuation, fulguration of bleeding
Condition: Fair
Diet: As tolerated, Low Fat and Low Cholesterol
Activity: As tolerated
Driving Restrictions: As prior to admission
Blood Work: CBC in 1 week, result to your PCP
Referrals:
NONE,* [Family Provider, Internal Medicine] - in less than 1 week
Prescriptions:
New
(DME) CBC without diff
See Rx Instructions .Route .MEDSUPPLY Qty: 1 0RF
Rx Instructions:
in 1 week (04/30 to 05/04), result to your PCP
Continued
cyanocobalamin (vitamin B-12) 1,000 MCG tablet
1,000 mcg PO DAILY
cholecalciferol (vitamin D3) 1,000 UNITS tablet
2,000 units PO DAILY
furosemide 40 MG tablet
40 mg PO BID AT 0800,1600 Qty: 60 2RF
diltiazem HCl 180 MG capsule,extended release 24hr
180 mg PO DAILY Qty: 30 0RF
melatonin 5 mg Tablet
10 mg PO HS PRN (Reason: sleep)
pravastatin 40 MG tablet
40 mg PO QPM
acetaminophen [Tylenol Extra Strength] 500 MG tablet
1,000 mg PO QID PRN (Reason: pain)
multivitamin Tablet
1 tab PO DAILY
losartan 50 mg Tablet
50 mg PO DAILY
Uro-MP 118-10-40.8-36 mg capsule
1 tab PO QID Qty: 40 5RF
tramadol 50 mg tablet
50 mg PO TID PRN (Reason: severe pain) Qty: 15 0RF
Discharge Orders:
Discharge Patient (As Directed); Ordered 04/27/25
Ordered By: Krys Farias
Discharge Date and Time
Discharge Date/Time: 04/27/25 14:48
Print Language: WELSH
== END 2025-04-27 14:48 | disposition home or self-care (01) | DRG 669 ==
LOC: IMU 23:36
PROVIDERS: Nurse Practitioner Family; Registered Nurse; ADMITTING PHYSICIAN Student in an Organized Health Care Education/Training Program; ATTENDING PHYSICIAN Internal Medicine; CONSULT PHYSICIAN Specialist; EMERGENCY PHYSICIAN Emergency Medicine
PROC: 0TCB8ZZ Extirpation of Matter from Bladder, Via Natural or Artificial Opening Endoscopic (ICD-10-PCS; 2025-04-26)
PROC: 0T5B8ZZ Destruction of Bladder, Via Natural or Artificial Opening Endoscopic (ICD-10-PCS; 2025-04-26)
PROC: 5A09357 Assistance with Respiratory Ventilation, Less than 24 Consecutive Hours, Continuous Positive Airway Pressure (ICD-10-PCS; 2025-04-26)
DX: C67.9 Malignant neoplasm of bladder, unspecified (principal); D62 Acute posthemorrhagic anemia; N99.820 Postprocedural hemorrhage of a genitourinary system organ or structure following a genitourinary system procedure; I47.10 Supraventricular tachycardia, unspecified; I50.32 Chronic diastolic (congestive) heart failure; Z68.41 Body mass index [BMI] 40.0-44.9, adult; N42.1 Congestion and hemorrhage of prostate; I11.0 Hypertensive heart disease with heart failure; E78.00 Pure hypercholesterolemia, unspecified; R33.9 Retention of urine, unspecified; N32.89 Other specified disorders of bladder; K21.9 Gastro-esophageal reflux disease without esophagitis; E66.01 Morbid (severe) obesity due to excess calories; G47.33 Obstructive sleep apnea (adult) (pediatric); Y84.8 Other medical procedures as the cause of abnormal reaction of the patient, or of later complication, without mention of misadventure at the time of the procedure; Y73.0 Diagnostic and monitoring gastroenterology and urology devices associated with adverse incidents; Y92.9 Unspecified place or not applicable; Z96.653 Presence of artificial knee joint, bilateral; Z87.891 Personal history of nicotine dependence; Z87.01 Personal history of pneumonia (recurrent); Z87.19 Personal history of other diseases of the digestive system; Z92.21 Personal history of antineoplastic chemotherapy; Z88.8 Allergy status to other drugs, medicaments and biological substances
CPT/HCPCS: 36415; 80048; 80053; 83036; 83735; 85025; 85027; 86803; 86850; 86900; 86901; 88307; 93005; 94660; 96361; 96374; 96375; 99285; A9589; J9201

== ENCOUNTER → 2025-08-15 09:14 | Outpatient (REF) | payer OTHER, SELFPAY | LOC: HWRAD 09:14 | PROVIDERS: ATTENDING PHYSICIAN Physician Assistant | DX: Z71.89 Other specified counseling (principal); E04.1 Nontoxic single thyroid nodule | CPT/HCPCS: 76536 ==